=== PATIENT | male | born 1990 | race Caucasian/White ===

== ENCOUNTER 2020-07-05 17:21 | Emergency (ER) | payer OTHER ==
[~2020-07-05] VITALS: Ht 180.3 cm; Wt 104.5 kg
[2020-07-05] MEDS ORDERED: IBUPROFEN 600MG TAB PO ONE (17:45)
[2020-07-05] MEDS ORDERED: CYCL-707 PO (18:50)
[2020-07-05] MEDS ORDERED: IBUP-1022 PO (18:50)
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
[2020-07-05 19:00] VITALS: BP 135/71
== END 2020-07-05 19:01 | disposition home or self-care (01) ==
LOC: M ED 17:21
DX: S01.01XA Laceration without foreign body of scalp, initial encounter (principal); S33.5XXA Sprain of ligaments of lumbar spine, initial encounter; V49.40XA Driver injured in collision with unspecified motor vehicles in traffic accident, initial encounter; M48.061 Spinal stenosis, lumbar region without neurogenic claudication

== ENCOUNTER 2024-09-12 07:45 | Day surgery (SDC) | payer OTHER ==
[~2024-09-12] VITALS: Ht 177.8 cm; Wt 103.4 kg
[~2024-09-12 07:45] MED LIST: CYCL-707 PO; IBUP-1022 PO
[2024-09-12] MEDS: MIDAZOLAM INJ 2MG/2ML VIAL IV PRN (09:17)
[2024-09-12] MEDS: fentaNYL 100 MCG/2 ML INJECTION IV PRN (09:17)
[2024-09-12] MEDS ORDERED: propofoL 200 MG/20 ML VIAL As Ordered ONE (09:20)
[2024-09-12] MEDS ORDERED: LIDOCAINE 2% 100MG/5ML SDV (FOR ANES.) As Ordered ONE (09:20)
[2024-09-12] MEDS ORDERED: ROCURONIUM BROMIDE 50MG/5ML VIAL As Ordered ONE (09:20)
[2024-09-12] MEDS ORDERED: fentaNYL 100 MCG/2 ML INJECTION As Ordered ONE (09:20)
[2024-09-12] MEDS: LIDOCAINE 1% SDV 5ML VIAL PN ONE (09:22)
[2024-09-12] MEDS: dexAMETHasone 10MG/1ML VIAL PRES.FREE PN ONE (09:22)
[2024-09-12] MEDS: ROPIvacaine 0.5% 30ML VIAL PN ONE (09:22)
[2024-09-12] MEDS ORDERED: PHENYLephrine 500MCG 5ML (100MCG/ML) SYRINGE As Ordered ONE (09:46)
[2024-09-12] MEDS: ceFAZolin SOD 2 GM in IV 1 EA IV ONE (09:49)
[2024-09-12] MEDS ORDERED: ONDANSETRON 4MG 2ML VIAL As Ordered ONE (09:50)
[2024-09-12] MEDS ORDERED: ePHEDrine SULFATE 25 MG/5 ML(5MG/ML) SYRINGE As Ordered ONE (09:51)
[2024-09-12] MEDS: TRANEXAMIC ACID 100 MG/ML 10ML VIAL IV ONE (10:01)
[2024-09-12] MEDS ORDERED: ACETAMINOPHEN 1000MG/100ML IV BAG As Ordered ONE (10:24)
[2024-09-12] MEDS ORDERED: dexmedeTOMIDine (4MCG/ML)200MCG/50ML BTL (PRECEDEX) As Ordered ONE (10:58)
[2024-09-12] MEDS ORDERED: SUGAMMADEX SODIUM 500 MG/5 ML VIAL (BRIDION) As Ordered ONE (11:03)
[2024-09-12] MEDS ORDERED: KETOROLAC 60MG 2ML VIAL As Ordered ONE (11:03)
[2024-09-12] MEDS: EPINEPHrine INJ 1 MG/ML 1ML AMP As Ordered ONE (11:15)
[2024-09-12] MEDS: TRANEXAMIC ACID 100 MG/ML 10ML VIAL As Ordered ONE (11:17)
[2024-09-12] MEDS: VANCOMYCIN 1000MG/20ML VIAL As Ordered ONE (11:17)
[2024-09-12] MEDS: LIDOCAINE W/EPINEPHRINE 1% 20ML VIAL As Ordered ONE (11:17)
[2024-09-12] MEDS ORDERED: MEPERIDINE 25 MG/ML 1ML VIAL IV PRN (11:30)
[2024-09-12] MEDS ORDERED: diphenhydrAMINE 50MG/ML VIAL IV PRN (11:30)
[2024-09-12] MEDS ORDERED: fentaNYL 100 MCG/2 ML INJECTION IV PRN (11:30)
[2024-09-12] MEDS: METOCLOPRAMIDE INJ 10MG/2ML VIAL IV PRN (12:17)
[2024-09-12] MEDS: oxyCODONE 5MG TAB PO PRN (12:17)
[2024-09-12] MEDS: ONDANSETRON 4MG 2ML VIAL IV PRN (12:17)
[2024-09-12] MEDS: HYDROMORPHONE HCL 0.5 MG/ 0.5 ML SYRINGE IV PRN (12:27)
[2024-09-12 12:54] VITALS: BP 145/67; TEMP 97.2; O2SAT 98
== END 2024-09-12 13:45 | disposition home or self-care (01) ==
LOC: M SDC 07:45
PROVIDERS: ATTEND Orthopaedic Surgery
DX: S43.432A Superior glenoid labrum lesion of left shoulder, initial encounter (principal); M75.42 Impingement syndrome of left shoulder; M75.52 Bursitis of left shoulder; Z79.899 Other long term (current) drug therapy; F17.200 Nicotine dependence, unspecified, uncomplicated
CPT/HCPCS: 29806; 29826; 64415; C1713; J0131; J0171; J0690; J1100; J1171; J1885; J2250; J2371; J2405; J2765; J2795; J3010